=== PATIENT | male | born 1970 | race Two or more races ===

== ENCOUNTER 2021-01-11 10:19 | Inpatient (IN) | payer MEDICAID, OTHER ==
[~2021-01-11] VITALS: Ht 193 cm; Wt 111.6 kg
[2021-01-11] MEDS ORDERED: SODIUM CHLORIDE 0.9% 1,000 ML IV ONE (11:30)
[2021-01-11] MEDS ORDERED: CLINDAMYCIN 600MG IV 50 ML IV ONE (11:45)
[2021-01-11] MEDS ORDERED: cefTRIAXone 1GM/50ML D5W 50 ML IV ONE (11:45)
[2021-01-11 12:06] LABS: Basophils # (auto) 0 10 ^3/uL (0-0.2); Basophils % (auto) 0.3 % (0.0-2.0); Eosinophils # (auto) 0.1 10 ^3/uL (0-0.8); Eosinophils % (auto) 1.4 % (0.0-7.0); Hematocrit 41.3 % (41.0-53.0); Hemoglobin 14.7 g/dL (13.5-17.5); Lymphocytes # (auto) 3.6 10 ^3/uL (0.4-5.4); Lymphocytes % (auto) 35.1 % (10.0-50.0); Mean Corpuscular Hemoglobin 29.2 pg (28.0-32.0); Mean Corpuscular Hgb Conc. 35.7 g/dL (32.0-36.0); Monocytes # (auto) 0.8 10 ^3/uL (0-1.3); Neutrophils # (auto) 5.6 10 ^3/uL (1.6-8.6); Neutrophils % (auto) 55.2 % (37.0-80.0); Nucleated Red Blood Cells % 0.1 %; Red Blood Cells 5.04 10^6/uL (4.5-5.90); Red Cell Distribution Width 12.6 % (11.8-14.3); White Blood Cell 10.1 10^3/uL (4.4-10.8)
[2021-01-11 12:35] LABS: Albumin 2.5 g/dL (3.4-5.0); Calcium 8.7 mg/dL (8.5-10.1)
[2021-01-11 12:38] LABS: BUN/Creatinine Ratio 11.6; Bilirubin, Total 0.8 mg/dL (0.2-1.0)
[2021-01-11 12:45] LABS: Potassium 2.7 mmol/L (3.5-5.1)
[2021-01-11] MEDS ORDERED: POTASSIUM CHL 20MEQ/100ML 100 ML IV ONE (13:00)
[2021-01-11] MEDS ORDERED: POTASSIUM CHL 20 Meq TABLET PO ONE (13:00)
[2021-01-11] MEDS ORDERED: MORPHINE SULF INJ 2 MG/ML SYRINGE 1ML IV PRN ×2 (13:30)
[2021-01-11] MEDS ORDERED: ONDANSETRON HCL 4 MG/2 ML VIAL IV PRN (13:30)
[2021-01-11] MEDS ORDERED: ACETAMINOPHEN 500 MG TAB PO PRN (13:30)
[2021-01-11] MEDS ORDERED: HYDROcodone-ACET 5/325MG TAB PO PRN (13:30)
[2021-01-11] MEDS ORDERED: SOD CHL 0.9%/ KCL 20MEQ 1,000 ML IV ONE (13:30)
[2021-01-11] MEDS ORDERED: VANCOMYCIN PER PHARMACY 0 MG IV SCH (13:30)
[2021-01-11] MEDS ORDERED: NITROGLYCERIN 0.4 MG SL TAB SL PRN (13:30)
[2021-01-11] MEDS: SODIUM CHLORIDE 0.9% 1,000 ML IV SCH ×2 (14:42→23:49)
[2021-01-11] MEDS: VANCOMYCIN 1GM/250ML 250 ML IV SCH (16:48)
[2021-01-11 22:30] VITALS: BP 115/65
[2021-01-12] MEDS: VANCOMYCIN 1GM/250ML 250 ML IV SCH ×2 (02:39→14:43)
[2021-01-12] MEDS ORDERED: METF-370 PO (02:49)
[2021-01-12 05:00] VITALS: BP 123/82
[2021-01-12 06:38] LABS: Basophils # (auto) 0 10 ^3/uL (0-0.2); Basophils % (auto) 0.6 % (0.0-2.0); Eosinophils # (auto) 0.2 10 ^3/uL (0-0.8); Eosinophils % (auto) 2.3 % (0.0-7.0); Hematocrit 38.1 % (41.0-53.0); Hemoglobin 13.6 g/dL (13.5-17.5); Lymphocytes # (auto) 3.1 10 ^3/uL (0.4-5.4); Lymphocytes % (auto) 46.2 % (10.0-50.0); Mean Corpuscular Hemoglobin 29.7 pg (28.0-32.0); Mean Corpuscular Hgb Conc. 35.8 g/dL (32.0-36.0); Monocytes # (auto) 0.6 10 ^3/uL (0-1.3); Monocytes % (auto) 8.8 % (0.0-12.0); Neutrophils # (auto) 2.8 10 ^3/uL (1.6-8.6); Neutrophils % (auto) 42.1 % (37.0-80.0); Nucleated Red Blood Cells % 0.1 %; Red Blood Cells 4.59 10^6/uL (4.5-5.90); Red Cell Distribution Width 12.7 % (11.8-14.3); White Blood Cell 6.6 10^3/uL (4.4-10.8)
[2021-01-12 06:46] LABS: Potassium 3.2 mmol/L (3.5-5.1)
[2021-01-12 06:50] LABS: BUN/Creatinine Ratio 14.8; Calcium 7.9 mg/dL (8.5-10.1)
[2021-01-12 09:00] VITALS: BP 126/76
[2021-01-12] MEDS: cefTRIAXone 1GM/50ML D5W 50 ML IV SCH (10:01)
[2021-01-12] MEDS: FAMOTIDINE 20 MG TAB PO SCH (10:01)
[2021-01-12] MEDS: SODIUM CHLORIDE 0.9% 1,000 ML IV SCH ×2 (10:09→21:11)
[2021-01-12] MEDS ORDERED: DEXTROSE (50%) 50ML SYRG IV PRN (12:00)
[2021-01-12 13:00] VITALS: BP 120/80
[2021-01-12] MEDS ORDERED: POTASSIUM CHL 20 Meq TABLET PO ONE (14:00)
[2021-01-12 17:00] VITALS: BP 115/84
[2021-01-12] MEDS: ACCU-CHEK COMFORT CURVE STRIP VI SCH ×2 (18:35→21:38)
[2021-01-12] MEDS: InsuLIN REG 1unit/0.01ml Soln (100units/ml) SC SCH ×2 (18:36→21:36)
[2021-01-12 22:22] VITALS: BP 114/74
[2021-01-13] MEDS: VANCOMYCIN 1GM/250ML 250 ML IV SCH ×2 (03:32→14:34)
[2021-01-13 05:28] VITALS: BP 115/75
[2021-01-13] MEDS: SODIUM CHLORIDE 0.9% 1,000 ML IV SCH ×2 (05:30→17:06)
[2021-01-13] MEDS: InsuLIN REG 1unit/0.01ml Soln (100units/ml) SC SCH ×4 (06:04→22:37)
[2021-01-13] MEDS: ACCU-CHEK COMFORT CURVE STRIP VI SCH ×4 (06:04→22:28)
[2021-01-13 09:00] VITALS: BP 119/79
[2021-01-13] MEDS: FAMOTIDINE 20 MG TAB PO SCH (09:14)
[2021-01-13] MEDS: cefTRIAXone 1GM/50ML D5W 50 ML IV SCH (09:14)
[2021-01-13 13:00] VITALS: BP_SYST 117; BP_SYST 99; BP_DIAS 59; BP_DIAS 75
[2021-01-13 16:38] VITALS: BP 113/77
[2021-01-13 22:00] VITALS: BP 122/77
[2021-01-14] MEDS: VANCOMYCIN 1GM/250ML 250 ML IV SCH (02:42)
[2021-01-14] MEDS: SODIUM CHLORIDE 0.9% 1,000 ML IV SCH ×2 (02:47→13:38)
[2021-01-14 05:00] VITALS: BP 141/83
[2021-01-14] MEDS: ACCU-CHEK COMFORT CURVE STRIP VI SCH ×2 (06:14→12:09)
[2021-01-14] MEDS: InsuLIN REG 1unit/0.01ml Soln (100units/ml) SC SCH ×2 (06:15→12:09)
[2021-01-14] MEDS: cefTRIAXone 1GM/50ML D5W 50 ML IV SCH (08:54)
[2021-01-14] MEDS: FAMOTIDINE 20 MG TAB PO SCH (08:54)
[2021-01-14 09:00] VITALS: BP 142/94
[2021-01-14 10:28] VITALS: BP 120/78
[2021-01-14] MEDS ORDERED: CLINDAMYCIN HCL 150 MG CAP PO SCH (14:00)
== END 2021-01-14 14:30 | disposition home or self-care (01) | DRG 603 ==
LOC: ER 10:19 → EAST 13:54 → OVERFLOW 15:33 → CENTRAL 20:25
PROVIDERS: ADMIT Nurse Practitioner Acute Care; ATTEND Family Medicine
DX: L03.312 Cellulitis of back [any part except buttock and flank] (principal); L02.212 Cutaneous abscess of back [any part, except buttock and flank]; E87.6 Hypokalemia; Z20.822 Contact with and (suspected) exposure to COVID-19; E11.9 Type 2 diabetes mellitus without complications; I10 Essential (primary) hypertension; Z79.84 Long term (current) use of oral hypoglycemic drugs
CPT/HCPCS: 36415; 80048; 80053; 80202; 82962; 83036; 83605; 85025; 87040; 87077; 87186; 87205; 87426; 96365; 96368; G0378; J0696; J1815; J3480; J3490